=== PATIENT | female | born 1940 | race Caucasian/White ===

== ENCOUNTER 2022-11-19 13:27 | Outpatient (CLI) | payer MEDICARE, MEDICAID, SELFPAY | END 2022-11-19 14:20 | disposition home or self-care (01) | PROVIDERS: PCP Family Medicine; Visit Provider Internal Medicine Infectious Disease | DX: A41.9 Sepsis, unspecified organism (principal) | CPT/HCPCS: 96365; J1335 ==

== ENCOUNTER → 2022-11-20 13:17 | Outpatient (CLI) | payer MEDICARE, MEDICAID, SELFPAY ==
--- NOTE | 2022-11-20 14:01 | PC.NURSE ---
pt came in outpatient for ertapenem infusion, infusion given, pt's bp 143/93 HR 89 O2 sat 99% on room air prior to leaving with family member
[2022-11-20 14:02] VITALS: BP 143/93; PULSE 89; RESP 16; O2SAT 99
== END ==
PROVIDERS: PCP Family Medicine; Visit Provider Internal Medicine Infectious Disease
DX: A41.9 Sepsis, unspecified organism (principal)
CPT/HCPCS: 96365; J1335

== ENCOUNTER 2022-11-21 13:37 | Outpatient (CLI) | payer MEDICARE, MEDICAID, SELFPAY ==
[2022-11-21 13:46] VITALS: BMI 36.1
[2022-11-21 14:00] LABS: Basophils # 0.1 K/mm3 (0-0.2); Basophils % 1.1 % (0.1-2.0); Eosinophils # 0.4 K/mm3 (0.0-0.4); Eosinophils % 5.8 % (0.1-12.0); Hemoglobin 15.1 g/dL (12.2-16.2); Lymphocytes % 27.3 % (10-50); Mean Corpuscular HGB Conc 32.8 g/dL (31.8-35.4); Mean Corpuscular Hemoglobin 30.5 pg (27.0-31.2); Mean Platelet Volume 6.5 fl (7.4-10.4); Monocytes # 0.8 K/mm3 (0.1-1.0); Monocytes % 10.2 % (1.7-9.3); Neutrophils # 4.1 K/mm3 (1.8-7.8); Neutrophils % 55.5 % (37.0-80.0); Platelet Count 342 K/mm3 (142-424); Red Blood Count 4.94 M/mm3 (4.20-5.40); Red Cell Distribution Width 13.6 % (11.5-17.5); White Blood Count 7.4 K/mm3 (4.8-10.8)
[2022-11-21 14:12] LABS: Alanine Aminotransferase 27 U/L (12-78); Albumin Level 4.1 g/dl (3.5-5.0); Albumin/Globulin Ratio 1.5 (1.1-1.8); Alkaline Phosphatase 102 U/L (38-126); Anion Gap 12.3 mEq/L (5-15); Aspartate Amino Transferase 35 U/L (14-36); Bilirubin,Total 0.4 mg/dl (0.2-1.3); Blood Urea Nitrogen 11 mg/dl (7-17); Calcium 8.4 mg/dl (8.4-10.2); Carbon Dioxide 27 mmol/L (22.0-30.0); Chloride 103 mmol/L (98-107); Creatinine Clearance Estimated 59 mL/min (50-200); Estimated Glomerular Filt Rate 53 ml/min (>60); GFR (African American) 65 ML/MIN (>60); Globulin 2.8 g/dL (1.3-3.2); Glucose 110 mg/dl (74-100); Potassium 3.3 mmoL/L (3.5-5.1); Sodium 139 mmol/L (136-145); Total Protein,Serum 6.9 g/dl (6.3-8.2)
[2022-11-21 14:35] VITALS: BP 138/74; PULSE 68; RESP 18; O2SAT 94
[2022-11-21 15:12] VITALS: BP 159/74; PULSE 74; RESP 18; O2SAT 94
[2022-11-21 15:26] LABS: Erythrocyte Sedimentation Rate 16 mm/hr (0-30)
== END 2022-11-21 15:14 | disposition home or self-care (01) ==
LOC: INF 13:38
PROVIDERS: PCP Family Medicine; Visit Provider Internal Medicine Infectious Disease
DX: A41.9 Sepsis, unspecified organism (principal)
CPT/HCPCS: 80053; 85025; 85651; 96365; J1335

== ENCOUNTER 2022-11-23 11:48 | Outpatient (CLI) | payer MEDICARE, MEDICAID, SELFPAY ==
[2022-11-23 11:57] VITALS: BP 133/64; PULSE 67; RESP 18; O2SAT 99
[2022-11-23 12:40] VITALS: BP 126/68; PULSE 72
== END 2022-11-23 12:40 | disposition home or self-care (01) ==
LOC: INF 11:48
PROVIDERS: PCP Family Medicine; Visit Provider Internal Medicine Infectious Disease
DX: A41.9 Sepsis, unspecified organism (principal)
CPT/HCPCS: 96365; J1335

== ENCOUNTER 2022-11-24 12:32 | Outpatient (CLI) | payer MEDICARE, MEDICAID, SELFPAY ==
[2022-11-24 12:50] VITALS: BP 125/73; PULSE 67; RESP 17; O2SAT 95
[2022-11-24 13:25] VITALS: BP 125/64; PULSE 65; RESP 16
== END 2022-11-24 13:34 | disposition home or self-care (01) ==
LOC: INF 12:33
PROVIDERS: PCP Family Medicine; Visit Provider Internal Medicine Infectious Disease
DX: A41.9 Sepsis, unspecified organism (principal)
CPT/HCPCS: 96365; J1335

== ENCOUNTER 2022-11-25 11:58 | Outpatient (CLI) | payer MEDICARE, MEDICAID, SELFPAY ==
[2022-11-25 12:15] VITALS: BP 132/59; PULSE 63; RESP 18; O2SAT 94
[2022-11-25 12:55] VITALS: BP 139/58; PULSE 62; RESP 16
== END 2022-11-25 13:10 | disposition home or self-care (01) ==
LOC: INF 11:59
PROVIDERS: PCP Family Medicine; Visit Provider Internal Medicine Infectious Disease
DX: A41.9 Sepsis, unspecified organism (principal)
CPT/HCPCS: 96365; J1335

== ENCOUNTER 2022-11-26 11:16 | Outpatient (CLI) | payer MEDICARE, MEDICAID, SELFPAY ==
[2022-11-26 11:40] VITALS: BP 124/59; PULSE 61; RESP 16; TEMP 36.6; O2SAT 96
[2022-11-26 12:20] VITALS: BP 148/56; PULSE 57; RESP 16; O2SAT 97
== END 2022-11-26 12:20 | disposition home or self-care (01) ==
PROVIDERS: PCP Family Medicine; Visit Provider Internal Medicine Infectious Disease
DX: A41.9 Sepsis, unspecified organism (principal)
CPT/HCPCS: 96365; G0463; J1335

== ENCOUNTER 2022-11-27 12:09 | Outpatient (CLI) | payer MEDICARE, MEDICAID, SELFPAY ==
[2022-11-27 01:15] VITALS: BP 156/72; PULSE 72; RESP 18; TEMP 36.7; O2SAT 95
[2022-11-27 12:45] VITALS: BP 154/76; PULSE 75; RESP 16; TEMP 36.6; O2SAT 95
== END 2022-11-27 13:15 | disposition home or self-care (01) ==
PROVIDERS: PCP Family Medicine; Visit Provider Internal Medicine Infectious Disease
DX: A41.9 Sepsis, unspecified organism (principal)
CPT/HCPCS: 96365; G0463; J1335

== ENCOUNTER 2022-11-28 11:35 | Outpatient (CLI) | payer MEDICARE, MEDICAID, SELFPAY ==
[2022-11-28 11:38] VITALS: BMI 36.1
[2022-11-28 12:00] VITALS: BP 115/63; PULSE 64; RESP 18; TEMP 36.6; O2SAT 95
[2022-11-28 12:02] LABS: Basophils # 0.1 K/mm3 (0-0.2); Basophils % 1.6 % (0.1-2.0); Eosinophils # 0.5 K/mm3 (0.0-0.4); Eosinophils % 9.2 % (0.1-12.0); Hematocrit 45.9 % (37.0-47.0); Hemoglobin 14.8 g/dL (12.2-16.2); Lymphocytes # 2.1 K/mm3 (0.7-4.5); Lymphocytes % 41.1 % (10-50); Mean Corpuscular HGB Conc 32.2 g/dL (31.8-35.4); Mean Corpuscular Hemoglobin 29.7 pg (27.0-31.2); Mean Corpuscular Volume 92.3 fl (81-99); Mean Platelet Volume 7.6 fl (7.4-10.4); Monocytes # 0.4 K/mm3 (0.1-1.0); Monocytes % 7.4 % (1.7-9.3); Neutrophils % 40.7 % (37.0-80.0); Platelet Count 559 K/mm3 (142-424); Red Blood Count 4.98 M/mm3 (4.20-5.40); Red Cell Distribution Width 13.2 % (11.5-17.5)
[2022-11-28 12:11] LABS: Alanine Aminotransferase 29 U/L (12-78); Albumin Level 4.1 g/dl (3.5-5.0); Albumin/Globulin Ratio 1.3 (1.1-1.8); Alkaline Phosphatase 95 U/L (38-126); Anion Gap 12.9 mEq/L (5-15); Aspartate Amino Transferase 33 U/L (14-36); Bilirubin,Total 0.5 mg/dl (0.2-1.3); Blood Urea Nitrogen 11 mg/dl (7-17); Calcium 8.6 mg/dl (8.4-10.2); Carbon Dioxide 26 mmol/L (22.0-30.0); Chloride 105 mmol/L (98-107); Creatinine Clearance Estimated 54 mL/min (50-200); Estimated Glomerular Filt Rate 48 ml/min (>60); GFR (African American) 58 ML/MIN (>60); Globulin 3.1 g/dL (1.3-3.2); Glucose 106 mg/dl (74-100); Potassium 3.9 mmoL/L (3.5-5.1); Sodium 140 mmol/L (136-145); Total Protein,Serum 7.2 g/dl (6.3-8.2)
[2022-11-28 12:29] LABS: Erythrocyte Sedimentation Rate 16 mm/hr (0-30)
[2022-11-28 12:48] VITALS: BP 131/56; PULSE 57; RESP 18; O2SAT 96
== END 2022-11-28 12:54 | disposition home or self-care (01) ==
LOC: INF 11:36
PROVIDERS: PCP Family Medicine; Visit Provider Internal Medicine Infectious Disease
DX: A41.9 Sepsis, unspecified organism (principal)
CPT/HCPCS: 80053; 85025; 85651; 96365; J1335